=== PATIENT | female | born 1995 | race Caucasian/White ===

== ENCOUNTER 2019-11-16 00:02 | Inpatient (IN) | payer OTHER, SELFPAY ==
[2019-11-16 00:05] VITALS: BP 116/71; PULSE 104; RESP 16; TEMP 36.9; O2SAT 99
--- NOTE | 2019-11-16 00:20 | W.ED.GENAD ---
Discharge Plan Disposition Patient Disposition: [facility] INPATIENT Condition: Stable Discharge Details Chief Complaint: HEALTH CARE COORDINATOR Clinical Impression: Abdominal pain affecting Admit Date/Time: 11/16/19 00:15 Admit Provider: Ishmael Valdez Attending Provider: Ishmael Valdez Primary Care Provider: Hilario Belle ED Provider: Gordo Medeiros Medical Decision Making 24 yo female who denies chronic medical problems g1 at unknown gestation comes in with lower abdominal cramping intermittently over the past few hours. She has no idea when he last menstrual period and has not had any care. She is having intermittent contractions in her lower abdomen, denies vaginal bleeding or d/c. She doesn't give a clear reason why she hasn't seen any obgyn provider. She has a gravid uterus extending above the umbilicus with fetus on bedside u/s with fhr of 150. Suspect she is in labor based on her pain location and intermittent nature. No tenderness in the abdomen when uterus is not kamla so doubt surgical pathology. Spoke with Dr. Valdez who [facility]. Differential Diagnosis Differential Diagnosis: contractions, labor, labor, ana sue HPI General Mode of arrival: ambulatory. Date/Time Provider Initiated Documentation: 11/16/19 00:03. Limitations to Documentation: no limitations. Information obtained by: patient. History of Present Illness 24 year old F presents to the emergency department with the chief complaint of abdominal pain, described as moderate, Patient started experiencing this hour(s) (3) and it has been constant. No relieving factors improve symptom(s), No exacerbating factors reported . Patient did receive the following treatments prior to arrival, none Related Data Home Medications Medication Instructions Recorded Confirmed Unknown [No Known Home Meds] 11/16/19 11/16/19 Allergies Allergy/AdvReac Type Severity Reaction Status Date / Time No Known Allergies Allergy Unverified 11/16/19 00:09 General Stated Complaint: HEALTH CARE COORDINATOR DYAN: 3 Review of Systems All systems reviewed & are unremarkable except as noted in HPI and below Constitutional Constitutional: Denies chills, Denies fever(s) and Denies weakness Cardiovascular Cardiovascular: Denies chest pain and Denies dyspnea Respiratory Respiratory: Denies cough and Denies dyspnea Gastrointestinal Gastrointestinal: Denies nausea and Denies vomiting Musculoskeletal Musculoskeletal: Denies joint swelling Neurologic Neurologic: Denies weakness Psychiatric Psychiatric: Denies depression [facility] Medical History (Updated 11/16/19 @ 00:25 by Gordo Medeiros MD) No acute medical problems (Acute) Social History Smoking/Tobacco Use Status: Never Alcohol Intake: never Substance use type: does not use Do you feel safe at home: Yes Do you feel safe in your relationship?: Yes Exam Const General: no acute distress Orientation: alert HENMT Head: normal to inspection Ears: external ears normal General nose exam: external nose normal Mouth: moist mucous membranes Eyes General: appearance normal, both eyes and all related structures Neck Neck: normal visual inspection Resp Effort & Inspection: normal respiratory effort and able to speak in complete sentences Cardio Rate: regular rate GI Rectal Exam - female: other (gravid uterus) Skin General skin exam: no rashes or lesions noted Neuro General: patient alert and patient oriented x3 Extrem General: normal to inspection Psych Mental Status: mental status grossly normal Course Vital Signs Vital signs: Vital Signs Temperature 36.9 C 11/16/19 00:05 Pulse 104 H 11/16/19 00:05 Respiratory Rate 16 11/16/19 00:05 Blood Pressure 116/71 11/16/19 00:05 Pulse Oximetry 99 11/16/19 00:05 Temperature 36.9 C 11/16/19 00:05 Pulse 104 H 11/16/19 00:05 Respiratory Rate 16 11/16/19 00:05 Respiratory Effort Non-Labored 11/16/19 00:10 Blood Pressure 116/71 11/16/19 00:05 Pulse Oximetry 99 11/16/19 00:05 Pain Level 10 11/16/19 00:05
--- NOTE | 2019-11-16 01:00 | PLAC_PTH ---
PATIENT: XIN PRATER LOC: OBS U#:[id number] AGE/SX: 24/F ROOM: OBS.302 RE11/16/[address]: Ishmael Valdez MD : 1995 BED: A DIS: 11/16/2019 SPEC #: [id number] RECD: 11/18/19 10:45 STATUS: SOREN REQ #: [id number] RAJ: 11/16/19 01:[address]: Ishmael Valdez DEPT: Surgical Specimen RECD BY: Chacho Michele ENTERED: 11/18/19 10:49 SP TYPE: PLAC OTHR DR: Hilario Belle MD Tissues: 1 - PLACENTA (NOT 3RD TRIMESTER) Procedures: IMMUNOPEROXIDASE STAIN GROSS AND MICRO LEVEL 5 Comments: [id number]
--- NOTE | 2019-11-16 01:21 | W.PM.HP.N ---
Assessment and Plan Assessment and plan (1) demise > 22 weeks, delivered, current hospitalization: Status: Acute Assessment and plan: The patient progressed to delivery shortly following admission. Delivered a stillborn male with no obvious anomalies. Please refer to delivery note for details. Plan to obtain all routine PNLs including urine drug screen. Will also obtain CMV, Parvo, Toxoplasmosis and COVID screen. History of Present Illness History of Present Illness Chief Complaint: labor / demise Narrative: 24 year old with unknown gestational age presented to the emergency department with acute onset of abdominal pain this evening. She is uncertain as to what time exactly. The patient was noted to have a gravid uterus on evaluation by the emergency department physician but reports that she was unaware of the . On initial evaluation, cervix was completely dilated with bulging membranes into the vagina. A beside ultrasound confirmed absence of cardiac activity. Gestational age was assessed through a single femur length at 24.4 weeks gestation. Review of Systems All systems reviewed & are unremarkable except as noted in HPI and below [facility] Medical History (Updated 11/16/19 @ 01:26 by Ishmael Valdez MD) No acute medical problems (Acute) Social History Smoking/Tobacco Use Status: Never Alcohol Intake: never Substance use type: does not use Do you feel safe at home: Yes Do you feel safe in your relationship?: Yes Meds Home Medications and Allergies Home Medications Medication Instructions Recorded Confirmed Type Unknown [No Known Home Meds] 11/16/19 11/16/19 History Allergies Allergy/AdvReac Type Severity Reaction Status Date / Time No Known Allergies Allergy Unverified 11/16/19 00:09 Exam GI Other: Beside ultrasound shows 24.4 week demise in vertex presentation. Gestational age based on single femur length measurement. Other: Vaginal exam on admission demonstrated complete cervical dilatation with bulging membranes into the vagina. Results Labs Result diagrams: 11/16/19 01:12 Last Vital Signs Temp 98.4 F 11/16/19 00:05 Pulse 104 H 11/16/19 00:05 Resp 16 11/16/19 00:05 BP 116/71 11/16/19 00:05 Pulse Ox 99 11/16/19 00:05 COVID-19 Screening Traveled to [place] from one of the affected countries or regions?: NO Recent travel in the [place] within the last 14 days?: No Recent out of the country travel within the last 14 days?: No Exposure or possible exposure to illness during travel?: No Had IN PERSON contact w/suspected or confirmed C-19 person: No Have you had the following symptoms in the past few days?: No
[2019-11-16 01:47] LABS: Abs Immature Grans 0.06 k/cumm (0.0-0.09); Absolute Basophil Count 0.03 k/cumm (0.0-0.2); Absolute Eosinophil Count 0.05 k/cumm (0.0-0.7); Absolute Monocyte Count 0.77 k/cumm (0.11-0.7); Absolute Neutrophil Count 8.19 k/cumm (1.2-6.7); Basophils % 0.3; Eosinophils % 0.5; HCT 31.7 % (36.0-46.0); HGB 10.4 g/dL (12.0-15.5); Immature Grans % 0.6 %; Lymphocytes % 14.2; Mean Corp. HGB Concentration 32.8 g/dL (32.0-36.0); Mean Corpuscular Hemoglobin 26.9 pg (27.0-33.0); Mean Corpuscular Volume 82.1 fL (80-95); Mean Platelet Volume 11.1 fL (8.0-11.0); Monocytes % 7.3; Neutrophils % 77.1; Platelet Count 415 x1000/uL (130-400); RBC 3.86 m/cumm (4.00-5.20); RBC Distribution Width 13.4 % (11.7-14.6)
--- NOTE | 2019-11-16 08:28 | W.PM.PROGNOT ---
Date of Service Date of service: 11/16/19 Time of Service: 08:31 Assessment and Plan Assessment and plan (1) demise > 22 weeks, delivered, current hospitalization: Status: Acute Assessment and plan: S/P of a 24-28 week demise last evening. She declines genetic testing of the fetus or placenta and declined to see the fetus after . We discussed follow up and counseling to some degree if desired. Rhogam to be provided today. PNLs remain pending. Will discharge the patient home and have her follow up with me this week. Subjective Subjective Patient reports: no new complaints Objective Objective Clinical Data: Abnormal lab results 11/16/19 Range/Units 00:15 RBC 3.86 L (4.00-5.20) m/cumm Hgb 10.4 L (12.0-15.5) g/dL Hct 31.7 L (36.0-46.0) % MCH 26.9 L (27.0-33.0) pg Plt Count 415 H (130-400) x1000/uL MPV 11.1 H (8.0-11.0) fL Absolute Neutrophils 8.19 H (1.2-6.7) k/cumm Absolute Monocytes 0.77 H (0.11-0.7) k/cumm Vital Signs Temperature 98.4 F 11/16/19 00:05 Pulse 104 H 11/16/19 00:05 Respiratory Rate 16 11/16/19 00:05 Respiratory Effort Non-Labored 11/16/19 00:10 Blood Pressure 116/71 11/16/19 00:05 Pulse Oximetry 99 11/16/19 00:05 Pain Level 10 11/16/19 00:53 Intake & Output 11/15/19 11/15/19 11/16/19 11:59 23:59 11:59 Weight 100 lb 7.399 oz Laboratory Results WBC 10.60 k/cumm (4.4-10.8) 11/16/19 00:15 RBC 3.86 m/cumm (4.00-5.20) L 11/16/19 00:15 Hgb 10.4 g/dL (12.0-15.5) L 11/16/19 00:15 Hct 31.7 % (36.0-46.0) L 11/16/19 00:15 MCV 82.1 fL (80-95) 11/16/19 00:15 MCH 26.9 pg (27.0-33.0) L 11/16/19 00:15 MCHC 32.8 g/dL (32.0-36.0) 11/16/19 00:15 RDW 13.4 % (11.7-14.6) 11/16/19 00:15 Plt Count 415 x1000/uL (130-400) H 11/16/19 00:15 MPV 11.1 fL (8.0-11.0) H 11/16/19 00:15 Immature Gran % 0.6 % 11/16/19 00:15 Neutrophils % 77.1 11/16/19 00:15 Lymphocytes % 14.2 11/16/19 00:15 Monocytes % 7.3 11/16/19 00:15 Eosinophils % 0.5 11/16/19 00:15 Basophils % 0.3 11/16/19 00:15 Absolute Neutrophils 8.19 k/cumm (1.2-6.7) H 11/16/19 00:15 Absolute Lymphocytes 1.50 k/cumm (1.2-3.4) 11/16/19 00:15 Absolute Monocytes 0.77 k/cumm (0.11-0.7) H 11/16/19 00:15 Absolute Eosinophils 0.05 k/cumm (0.0-0.7) 11/16/19 00:15 Absolute Basophils 0.03 k/cumm (0.0-0.2) 11/16/19 00:15 Patient ABO/Rh O Negative 11/16/19 01:30 Antibody Screen Negative 11/16/19 01:30
--- NOTE | 2019-11-16 13:11 | PDOC.CMPRO ---
Care Management Progress Note CM met with Sanjuana who was lying in bed, watching television and texting her brother on her phone. Sanjuana explained that she moved to [place] after attending [employer] and graduating with a degree in Criminal Justice. 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 Sanjuana reports participating in the [employer] at [facility] and having a good support network of friends in the area. Her significant other is attending school at [employer] and resides on campus. Sanjuana's brother resides with her and is currently the Supervisor Electronics Testing for the [employer] program. She also has two cats that she rescued and showed this insurance underwriter pictures of, stating she was looking forward to going home and cuddling with them. Sanjuana spoke openly about the effects of CV-19 and her worries and participation in the protesting of the closure of [facility]. She easily engaged with this insurance underwriter, made appropriate eye contact and wept about the loss of her baby. Sanjuana expressed guilt and remorse to not seeking medical or care when she thought she may of been . She stated that when speaking to her significant other, they felt overwhelmed and unsure of what to do. CM validated Sanjuana and provided supportive listening for Sanjuana to process the events. CM encouraged Sanjuana to find healthy coping skills, to be gentle with herself and to provided education around the grief and loss. CM reviewed community based supports and encouraged Sanjuana to outreach for provider attachment. CM reviewed paperwork and decision making regarding final arrangements for Sanjuana's baby boy. Sanjuana reported feeling confident in choosing cremation, and completed necessary paperwork authorizing [facility] to proceed. CM contacted Chaplain Hari, Roma Rincon, from [facility] and coordination information and procedure with [facility] RN, and RN Health Nurse; Alma Hays. Christina reported she would transport Baby Derrick Wilkinson to [facility] on 11/18/19. CM provided paperwork to the chart, to Alma Hays and retained a copy for Care Management. CM reviewed required signatures with Alma for Monday's release. CM escorted Sanjuana's brother in to see her, as he was providing her transport home. CM reviewed contact information for Sanjuana to outreach as needed for further support.
[2019-11-18 09:02] LABS: COVID-19 RT-PCR UVMMC Result Negative (Negative)
[2019-11-18 11:00] LABS: Hepatitis B Surface Ag Negative (Negative)
[2019-11-18 11:14] LABS: HIV-1/2 Ag & Ab Screen Negative (Negative)
[2019-11-18 11:23] LABS: Hepatitis C Ab w Rflx HCV PCR Negative (Negative)
[2019-11-19 09:47] LABS: CMV Ab, IgM Negative (Negative); Toxoplasma Ab, IgG Negative (Negative); Toxoplasma Ab, IgM Negative (Negative); Toxoplasma IgG Value <3 IU/mL
[2019-11-19 12:38] LABS: Parvovirus B19 Ab, IgG Negative (Negative); Parvovirus B19 Ab, IgM Negative (Negative)
[2019-11-19 13:35] LABS: Rubella IgG Ab (UVM) Negative (See Note); Syphilis Serology (RPR) Negative (Negative)
== END 2019-11-16 14:00 | disposition home or self-care (01) | DRG 806 ==
LOC: ER 00:18 → OBS 00:20
PROVIDERS: Admitting Provider Obstetrics & Gynecology; Emergency Provider Emergency Medicine; PCP Pediatrics; Visit Provider Obstetrics & Gynecology
DX: O75.89 Other specified complications of labor and delivery (principal); O36.4XX0 Maternal care for intrauterine death, not applicable or unspecified; Z37.1 Single stillbirth; O60.12X0 Preterm labor second trimester with preterm delivery second trimester, not applicable or unspecified; Z3A.24 24 weeks gestation of pregnancy; O09.32 Supervision of pregnancy with insufficient antenatal care, second trimester
CPT/HCPCS: 36415; 80055; 85461; 86803; 86850; 86900; 86901; 87340; 87389; 88305; 90384; 99223; 99233; 99285; U0003; 86592; 86645; 86747; 86762; 86777; 86778; 88307; 88361; J2790